=== PATIENT | female | born 1985 | race Hispanic/Latino ===

== ENCOUNTER 2017-09-01 06:27 | Emergency (ER) | payer OTHER ==
[2017-09-01 06:42] VITALS: BP 124/76; PULSE 95; RESP 18; TEMP 99.8; O2SAT 97
--- NOTE | 2017-09-01 08:00 | ED PDOC ---
HPI: General Adult Time Seen by Provider: 09/01/17 07:08 Chief Complaint (Nursing): Flu-like Symptoms Chief Complaint (Provider): Neck Pain History Per: Patient History/Exam Limitations: no limitations Onset/Duration Of Symptoms: Days (x3) Current Symptoms Are (Timing): Still Present Additional Complaint(s): Nestor Lorenzo is a 31 year old female that presents to the ED with a chief complaint of neck pain and an upper respiratory infection. Patient reports that on 08/30/17 she was feeling ill and was seen by a telemedicine service called [facility], to which she gave her symptoms on a video chat and was told that she had the flu, and was given an Rx for Tamiflu. She reports that since then she has developed midline neck pain that goes down her back and is not significantly relieved by the Advil that she was taking. She denies any fever, chills, light sensitivity, nausea, or vomiting. Patient reports that she takes an oral contraceptive, denies smoking or drinking. Past Medical History Reviewed: Historical Data, Nursing Documentation, Vital Signs Vital Signs: Last Vital Signs Temp 99.8 F H 09/01/17 06:29 Pulse 95 H 09/01/17 06:29 Resp 18 09/01/17 06:29 BP 124/76 09/01/17 06:29 Pulse Ox 97 09/01/17 08:03 - Family History Family History: States: Unknown Family Hx - Social History Current smoker - smoking cessation education provided: No Alcohol: None - Allergies Allergies/Adverse Reactions: Allergies Allergy/AdvReac Type Severity Reaction Status Date / Time No Known Allergies Allergy Verified 09/01/17 07:26 Review of Systems Constitutional: Negative for: Fever, Chills Cardiovascular: Negative for: Chest Pain Gastrointestinal: Negative for: Nausea, Vomiting Musculoskeletal: Positive for: Neck Pain (without stiffness) Neurological: Negative for: Headache, Other (no photophobia) Physical Exam - Reviewed Nursing Documentation Reviewed: Yes Vital Signs Reviewed: Yes - Physical Exam Appears: Positive for: Non-toxic, No Acute Distress Head Exam: Positive for: ATRAUMATIC, NORMOCEPHALIC Skin: Positive for: Normal Color, Warm Eye Exam: Positive for: Normal appearance, EOMI, PERRL Neck: Positive for: Normal (No nuchal rigidity), Supple Cardiovascular/Chest: Positive for: Regular Rate, Rhythm. Negative for: Murmur Respiratory: Positive for: Normal Breath Sounds. Negative for: Wheezing Gastrointestinal/Abdominal: Positive for: Normal Exam, Soft. Negative for: Tenderness Back: Positive for: Normal Inspection. Negative for: L CVA Tenderness, R CVA Tenderness Extremity: Positive for: Normal ROM. Negative for: Deformity Neurologic/Psych: Positive for: Alert, manager professional development II-XII, Oriented. Negative for: Motor/Sensory Deficits - ECG O2 Sat by Pulse Oximetry: 97 (RA) Pulse Ox Interpretation: Normal Medical Decision Making Medical Decision Making: Impression: Upper Respiratory Tract Infection with muscle strain in neck Plan: * Flu Swab * Rapid Strep * Reevaluation Scribe Attestation: Documented by Farideh Cuellar, acting as a scribe for Betty Beth MD. Provider Scribe Attestation: All medical record entries made by the Scribe were at my direction and personally dictated by me. I have reviewed the chart and agree that the record accurately reflects my personal performance of the history, physical exam, medical decision making, and the department course for this patient. I have also personally directed, reviewed, and agree with the discharge instructions and disposition. Disposition - Clinical Impression Clinical Impression: Influenza, Muscle strain - Patient ED Disposition Is Patient to be Admitted: No Doctor Will See Patient In The: Office Counseled Patient/Family Regarding: Diagnosis, Need For Followup - Disposition Disposition: Routine/Home Disposition Time: 08:25 Condition: STABLE Additional Instructions: Influenza A Instructions: Influenza (ED) Forms: [employer] ([place]ian) - POA Present On Arrival: None
== END 2017-09-01 09:15 | disposition home or self-care (01) ==
LOC: H.ER 06:27
DX: J11.1 Influenza due to unidentified influenza virus with other respiratory manifestations (principal); S16.1XXA Strain of muscle, fascia and tendon at neck level, initial encounter